=== PATIENT | male | born 1985 | race Caucasian/White ===

== ENCOUNTER → 2025-03-18 10:10 | Outpatient (CLI) | payer OTHER, SELFPAY | PROVIDERS: Visit Provider Surgery | DX: E11.621 Type 2 diabetes mellitus with foot ulcer (principal); I87.2 Venous insufficiency (chronic) (peripheral); L97.512 Non-pressure chronic ulcer of other part of right foot with fat layer exposed; I89.0 Lymphedema, not elsewhere classified; M06.9 Rheumatoid arthritis, unspecified; Z79.52 Long term (current) use of systemic steroids | CPT/HCPCS: 11042; 87070; 87075; 87077; 87147; 87186; 87205; 99203; 99214 ==

== ENCOUNTER → 2025-03-18 16:11 | Outpatient (CLI) | payer OTHER, SELFPAY ==
--- NOTE | 2025-03-18 16:12 | DI.RAD.S_ITS ---
PROCEDURE: XR FOOT RT MIN 3V INDICATIONS: DFU R plantar foot, eval for osteo TECHNIQUE: Three views of the foot were acquired. COMPARISON: None. FINDINGS: Bones: No fractures or dislocations. No suspicious bony lesions. Soft tissues: No tibiotalar joint effusion. Achilles tendon appears normal. No radiodense foreign bodies or soft tissue gas. IMPRESSION: No radiographic evidence of osteomyelitis, however radiographs are insensitive in the early phase, and if there is further concern for osteomyelitis, MR imaging is recommended. Dictated by: Micheline Altman M.D. on 03/19/2025 at 14:26 Approved by: Micheline Altman M.D. on 03/19/2025 at 14:27
[2025-03-18 17:04] LABS: Add Manual Diff / Slide Review NO; Hematocrit 52.4 % (41-53); Hemoglobin 17.0 g/dL (13.5-17.5); Lymphocytes Absolute Auto 2100 /uL (1100-4500); Mean Corpuscular HGB Conc 32.4 % (30-36); Mean Corpuscular Hemoglobin 25.6 PG (26-34); Mean Corpuscular Volume 78.9 fL (80-100); Platelet Count 104 X10^3/uL (150-400)
[2025-03-18 17:18] LABS: RBC Morphology Normal Morphology
[2025-03-18 17:19] LABS: Alanine Aminotransferase 38 IU/L (<50); Albumin 4.4 g/dL (3.5-5.0); Albumin Globulin Ratio 1.8 (1.0-2.8); Alkaline Phosphatase 75 U/L (38-126); Blood Urea Nitrogen 19 mg/dL (9-20); Calcium 9.8 mg/dL (8.4-10.2); Carbon Dioxide 24 mmol/L (22-32); Chloride 101 mmol/L (98-107); Estimated Glomerular Filt Rate > 60 mL/min (>60); Globulin 2.5 g/dL (1.7-4.1); Glucose 177 mg/dL (70-99); HEMOLYSIS < 15 (0-50); Potassium 4.2 mmol/L (3.4-5.1); Sodium 134 mmol/L (137-145); Total Protein 6.9 g/dL (6.3-8.2)
[2025-03-18 17:21] LABS: Hemoglobin A1C% w Est Avg Glu 8.0 % (4.0-6.0)
== END ==
PROVIDERS: PCP Family Medicine; Referring Provider Surgery; Visit Provider Surgery
DX: E11.621 Type 2 diabetes mellitus with foot ulcer (principal)
CPT/HCPCS: 36415; 73630; 80053; 83036; 85025; 87070; 87075; 87205

== ENCOUNTER → 2025-04-08 09:02 | Outpatient (CLI) | payer OTHER, SELFPAY | LOC: WC 09:02 | PROVIDERS: PCP Family Medicine; Referring Provider Family Medicine; Visit Provider Surgery | DX: E11.621 Type 2 diabetes mellitus with foot ulcer (principal); L97.512 Non-pressure chronic ulcer of other part of right foot with fat layer exposed; I89.0 Lymphedema, not elsewhere classified; I87.2 Venous insufficiency (chronic) (peripheral); Z79.52 Long term (current) use of systemic steroids | CPT/HCPCS: 11042 ==

== ENCOUNTER → 2025-04-15 09:42 | Outpatient (CLI) | payer OTHER, SELFPAY | LOC: WC 09:48 | PROVIDERS: PCP Family Medicine; Referring Provider Family Medicine; Visit Provider Surgery | DX: E11.621 Type 2 diabetes mellitus with foot ulcer (principal); L97.512 Non-pressure chronic ulcer of other part of right foot with fat layer exposed; I89.0 Lymphedema, not elsewhere classified; I87.2 Venous insufficiency (chronic) (peripheral); F17.200 Nicotine dependence, unspecified, uncomplicated | CPT/HCPCS: 11042; 99213 ==

== ENCOUNTER → 2025-04-22 11:46 | Outpatient (CLI) | payer OTHER, SELFPAY | LOC: WC 11:48 | PROVIDERS: PCP Family Medicine; Visit Provider Surgery | DX: L97.412 Non-pressure chronic ulcer of right heel and midfoot with fat layer exposed (principal); E11.621 Type 2 diabetes mellitus with foot ulcer; I89.0 Lymphedema, not elsewhere classified; I87.2 Venous insufficiency (chronic) (peripheral); F17.210 Nicotine dependence, cigarettes, uncomplicated; Z91.199 Patient's noncompliance with other medical treatment and regimen due to unspecified reason | CPT/HCPCS: 11042 ==